=== PATIENT | male | born 1950 | race Caucasian/White ===

== ENCOUNTER 2017-01-19 07:09 | Inpatient (IN) | payer OTHER ==
[2016-12-23 13:52] VITALS: BMI 26.0
--- NOTE | 2016-12-23 14:25 | PAT Medication Instructions ---
Service Date Dec 23, 2016. Current Home Medication List Ascorbic Acid (Vitamin C), 1,000 MG PO QAM Aspirin (Aspirin Ec), 81 MG PO QAM Biotin (Biotin 5000), 5,000 MCG PEG QAM Loratadine (Allergy Relief), 10 MG PO QAM Lysine Hcl (Lysine), 1,000 MCG PO QAM Metoprolol Succ (Toprol Xl) (Toprol-Xl), 25 MG PO QAM Vitamin E (Alph-E), 400 PO QAM Medication Instructions For Your Scheduled Surgery - Hold the following medications 2 weeks prior to surgery: Vitamin E (Alph-E), 400 PO QAM - Hold the following medications the morning of surgery: Loratadine (Allergy Relief), 10 MG PO QAM Lysine Hcl (Lysine), 1,000 MCG PO QAM Biotin (Biotin 5000), 5,000 MCG PEG QAM Ascorbic Acid (Vitamin C), 1,000 MG PO QAM - Take the following medications the morning of surgery with a sip of water: Metoprolol Succ (Toprol Xl) (Toprol-Xl), 25 MG PO QAM Aspirin (Aspirin Ec), 81 MG PO QAM (okay to continue per surgeon) If you have any questions please call us at [phone] or [phone] or [phone]
--- NOTE | 2016-12-23 14:51 | DIAGNOSTIC IMAGING REPORT ---
CHEST 2 VIEWS ROUTINE CLINICAL HISTORY: Preoperative chest COMPARISON STUDY: No previous studies for comparison. FINDINGS: The cardiac and mediastinal contours are normal. There is no evidence of focal pulmonary consolidation. There is no evidence of failure. No pleural effusions are visualized.[ IMPRESSION: No active disease in the chest. Electronically signed by: Allen Chan M.D. 12/23/2016 2:50 PM Dictated Date/Time: 12/23/2016 2:50 PM
[2016-12-23 15:38] LABS: URINE APPEARANCE CLEAR (CLEAR); URINE BILIRUBIN NEG (NEG); URINE COLOR YELLOW; URINE NITRITE NEG (NEG); URINE PH 5.5 (4.5-7.5); URINE SPECIFIC GRAVITY 1.023 (1.000-1.030); UROBILINOGEN NEG (NEG); ZZUR CULT IF INDIC CLEAN CATCH NO
[2016-12-23 15:41] LABS: MANUAL MICROSCOPIC REQUIRED? NO; REVIEW REQ? NO
[2016-12-23 16:36] LABS: HEMATOCRIT 38.1 % (42-52); MEAN CELL VOLUME 100.5 fL (80-100); MEAN CORPUSCULAR HGB CONC 33.9 g/dl (32-36); MEAN PLATELET VOLUME 9.5 fL (7.4-10.4); PLATELET COUNT 116 K/uL (130-400); RED BLOOD COUNT 3.79 M/uL (4.7-6.1)
[2016-12-23 16:37] LABS: BASO % 0.1 %; BASO ABS # 0.03 K/uL (0-0.2); COMPLETE YES; EOS % 0.1 %; IG% 0.1 %; LYMPH % 89.7 %; LYMPH ABS # 26.89 K/uL (1.2-3.4); MONO % 0.9 %; NEUT % 9.1 %
[2016-12-23 20:28] LABS: WHITE BLOOD COUNT 30.93 K/uL (4.8-10.8)
--- NOTE | 2017-01-18 16:17 | HISTORY & PHYSICAL EXAMINATION ---
DATE OF ADMISSION: 01/19/2017 CHIEF COMPLAINT: Chronic right shoulder pain. HISTORY OF PRESENT ILLNESS: This is a 66-year-old male patient of Dr. Varela, complaining of chronic right shoulder pain. He has been diagnosed with end-stage osteoarthritis per clinical and radiographic exams. The patient wishes to proceed with a right total shoulder arthroplasty. PAST MEDICAL HISTORY: Atrial fibrillation and osteoarthritis. SOCIAL HISTORY: Nonsmoker and nondrinker. PAST SURGICAL HISTORY: Left knee surgery. REVIEW OF SYSTEMS: The patient complains of chronic right shoulder pain. Otherwise, denies any shortness of breath, chest pain, nausea, vomiting or any other joint complaints. MEDICATIONS: Vitamin C 1000 mg daily, lysine 1000 mg daily, vitamin E 400 international units daily, biotin 1000 mg daily, 81 mg aspirin daily and he has taken antihistamine over the counter as needed. ALLERGIES: INCLUDE PENICILLIN. PHYSICAL EXAMINATION: GENERAL: Well-developed and well-nourished 66-year-old male in no acute distress. He is alert and oriented x3 and pleasant. HEENT: Normocephalic and atraumatic. Extraocular motions are intact. Pupils are equal and reactive to light. HEART: Irregular heartbeat with a history of atrial fibrillation. LUNGS: Clear. ABDOMEN: Soft and nontender. Bowel sounds are present. EXTREMITIES: Right shoulder reveals active range of motion to 140 degrees and passively to 160. He has crepitation and pain with range of motion. He has 4-5/5 strength. Neurologically and neurovascularly he is intact in his right upper extremity. DIAGNOSES: Right shoulder end-stage osteoarthritis. He has a history of atrial fibrillation and osteoarthritis. PLAN: The patient was advised of his diagnoses. Indications, risks, benefits, and postop course have all been reviewed. The patient wished to proceed with a right total shoulder arthroplasty. Necessary consent forms, preoperative testing and clearances will be obtained.
[~2017-01-19] VITALS: Ht 180.3 cm; Wt 87.1 kg
[2017-01-19] VITALS (9 sets, daily range): BP systolic 78–102; BP diastolic 56–84; PULSE 79–102; TEMP 35.7–36.8; O2SAT 96–99; Ht 180.3 cm; Wt 87.1 kg
[~2017-01-19 07:09] MED LIST: ACETAMINOPHEN 500 MG TAB PO SCH; ASCO10003 PO; ASPI81TA28 PO; BIOTCAP2 PO; BUPIVACAINE 0.25% 30 ML VIAL ONE; CeleBREX 200 MG CAP PO SCH; DEXAMETHASONE 4 MG TAB PO SCH; EpINEphrine INJ 1MG/ML AMP 1 MG/ML AMP ONE; FAMOTIDINE 20 MG TAB PO SCH; GABAPENTIN 300 MG CAP PO SCH; LACTATED RINGER'S 1000ML 1,000 ML IV SCH; LACTATED RINGER'S 1000ML IV SCH; LORA-554 PO; LYSI100010 PO; METO25TA3 PO; METOCLOPRAMIDE HCL 10 MG TAB PO SCH; ROPIVACAINE 0.5% 5 MG/ML 30 ML VIAL ONE; VANCOMYCIN INJ 1,250 MG in SODIUM CHLORIDE 0.9% 250ML 250 ML IV SCH; VITA400C28 PO
[2017-01-19] MEDS ORDERED: MEPERIDINE HCL 25 MG/ML CARP IV PRN (08:15)
[2017-01-19] MEDS ORDERED: LABETALOL HCL IV 5 MG/ML 20ML IV PRN (08:15)
[2017-01-19] MEDS ORDERED: NALOXONE HCL 0.4 MG/1 ML VIAL/CARP IV PRN ×2 (08:15→14:00)
[2017-01-19] MEDS ORDERED: ONDANSETRON INJ 2 MG/ML 2 ML VIAL IV PRN ×2 (08:15→14:00)
[2017-01-19] MEDS ORDERED: PHENYLEPHRINE 100MCG/ML 5ML SYR IV PRN (08:15)
[2017-01-19] MEDS ORDERED: EpHEDrine SULFATE INJ 50 MG/ML AMP IV PRN (08:15)
[2017-01-19] MEDS ORDERED: ATROPINE SULFATE 0.1 MG/ML 5ML SYR IV PRN (08:15)
[2017-01-19] MEDS ORDERED: FENTANYL CITRATE INJ 50 MCG/1 ML 2 ML VIAL IV PRN (08:15)
[2017-01-19] MEDS ORDERED: HYDROmorphone INJ 2 MG/ML SYR/VIAL IV PRN (08:15)
[2017-01-19] MEDS ORDERED: FLUMAZENIL 0.1 MG/1 ML 10 ML VIAL IV PRN (08:15)
[2017-01-19] MEDS ORDERED: MIDAZOLAM HCL 1 MG/ML 2ML VIAL ONE (08:50)
[2017-01-19] MEDS ORDERED: FENTANYL CITRATE INJ 50 MCG/1 ML 2 ML VIAL ONE (08:50)
--- NOTE | 2017-01-19 09:07 | History & Physical Bridge Note ---
H&P Re-Evaluation Bridge Note: I have examined the patient, reviewed the History & Physical and in the interval since the performance of the History & Physical I have noted the following changes of clinical significance: No changes noted
[2017-01-19] MEDS ORDERED: EpINEphrine HCL INJ 1 MG/ML 5ML SYRINGE ONE (09:24)
[2017-01-19] MEDS ORDERED: BACITRACIN 50000 UNIT VIAL ONE (09:24)
[2017-01-19] MEDS ORDERED: PROPOFOL IV EMULSION 10 MG/ML 20 ML VIAL IV ONE (10:11)
[2017-01-19] MEDS ORDERED: LIDOCAINE HCL 2% 2 ML VIAL (20MG/ML) ONE (10:11)
[2017-01-19] MEDS ORDERED: ROCURONIUM BROMIDE 10 MG/ML 5 ML VIAL IV ONE ×2 (10:11→12:01)
[2017-01-19] MEDS ORDERED: DEXAMETHASONE SOD INJ 4 MG/ML VIAL ONE (10:33)
[2017-01-19] MEDS ORDERED: ONDANSETRON INJ 2 MG/ML 2 ML VIAL ONE (10:33)
[2017-01-19] MEDS ORDERED: EpHEDrine SULFATE 50MG/5ML SYR ONE (10:33)
[2017-01-19] MEDS ORDERED: PHENYLEPHRINE 100MCG/ML 5ML SYR ONE (10:33)
[2017-01-19] MEDS ORDERED: PHENYLEPHRINE HCL INJ 10 MG/ML VIAL ONE (12:03)
[2017-01-19] MEDS ORDERED: GLYCOPYRROLATE INJ 0.2 MG/ML VIAL ONE (13:24)
[2017-01-19] MEDS ORDERED: NEOSTIGMINE METHYLSULFATE 1 MG/ML 10ML VIAL ONE (13:24)
[2017-01-19] MEDS ORDERED: ESMOLOL HCL 10 MG/ML 10 ML VIAL ONE (13:48)
[2017-01-19] MEDS ORDERED: VANCOMYCIN INJ 1,000 MG in SODIUM CHLORIDE 0.9% 250ML 250 ML IV SCH (14:00)
[2017-01-19] MEDS ORDERED: METOCLOPRAMIDE HCL INJ 5 MG/ML 2 ML VIAL IV PRN (14:00)
[2017-01-19] MEDS ORDERED: SOD PHOSPHATE/SOD BIPHOSPHATE ENEMA 132 ML BTL PR PRN (14:00)
[2017-01-19] MEDS ORDERED: BISACODYL 10 MG SUPP PR PRN (14:00)
[2017-01-19] MEDS ORDERED: MoRPHine SULFATE 2 MG/ML CARP IV PRN (14:00)
[2017-01-19] MEDS ORDERED: ZOLPIDEM TARTRATE 5 MG TAB PO PRN (14:00)
--- NOTE | 2017-01-19 14:14 | [facility] Post Operative Brief Note ---
Immediate Operative Summary Operative Date Jan 19, 2017. Pre-Operative Diagnosis Right shoulder end-stage osteoarthritis Post-Operative Diagnosis Right shoulder end-stage osteoarthritis,marked biceps tendinopathy and bone spurs bicipital groove Procedure(s) Performed Right Total Shoulder Arthroplasty, Biceps Tenodesis Surgeon Dr. Grey Varela Motorboat Mechanic Helper Surgeon(s) Rambo Jones PA-C Estimated Blood Loss 50ml Findings severe osteoarthritis with posterior glenoid erosion and bone loss Specimens A: Right humeral head Drains 2 hemovac Anesthesia general and regional Complication(s) hairline fracture humeral neck Disposition Recovery Room / PACU
--- NOTE | 2017-01-19 14:18 | DIAGNOSTIC IMAGING REPORT ---
R SHOULDER MIN 2 VIEWS ROUTINE HISTORY: 67 years-old Male Post shoulder surgery status post right shoulder arthroplasty. Degenerative joint disease. COMPARISON: Chest radiograph 12/23/2016 TECHNIQUE: 2 views of the right shoulder FINDINGS: Postoperative changes of recent right shoulder hemiarthroplasty demonstrating satisfactory alignment. No periprosthetic fracture or retained foreign body identified. Surgical drain is in place as well as adjacent skin juanita with expected postsurgical deep tissue air and soft tissue swelling about the shoulder. IMPRESSION: Status post right shoulder hemiarthroplasty without complication identified. Please see procedural report for further details. The above report was generated using voice recognition software. It may contain grammatical, syntax or spelling errors. Electronically signed by: Jey Yi M.D. 01/19/2017 2:17 PM Dictated Date/Time: 01/19/2017 2:15 PM
--- NOTE | 2017-01-19 15:03 | Anesthesiology Progress Note ---
Anesthesia Post Op Note Date & Time Jan 19, 2017 at 15:02 Vital Signs Pain Intensity: 0 Vital Signs Past 12 Hours Date Time Temp Pulse Resp B/P (MAP) Pulse Ox O2 Delivery O2 Flow Rate FiO2 01/19/17 14:55 36.6 88 16 87/57 99 Nasal Cannula 2 01/19/17 14:45 78 18 82/57 98 Nasal Cannula 2 01/19/17 14:35 93 17 83/64 100 Nasal Cannula 2 01/19/17 14:25 88 18 87/56 98 Nasal Cannula 2 01/19/17 14:17 90/62 01/19/17 14:15 98 18 79/53 99 Oxymask 10 01/19/17 14:05 84 18 85/63 100 Oxymask 10 01/19/17 13:57 36.3 101 14 84/73 100 Oxymask 10 01/19/17 08:25 36.4 79 18 99/84 98 Room Air Notes Mental Status: alert / awake / arousable, participated in evaluation Pt Amnestic to Procedure: Yes Nausea / Vomiting: adequately controlled Pain: adequately controlled Airway Patency, RR, SpO2: stable & adequate BP & HR: stable & adequate Hydration State: stable & adequate Anesthetic Complications: no major complications apparent
--- NOTE | 2017-01-19 15:22 | OPERATIVE REPORT ---
DATE OF OPERATION: 01/19/2017 INDICATION FOR PROCEDURE: The patient is a 67-year-old male who has a history of chronic progressive osteoarthritis in his right shoulder. He has been treating this conservatively for many years. He decided to proceed with shoulder replacement surgery at this time. He was diagnosed recently on his workup with chronic lymphocytic leukemia and atrial fibrillation but have not been affecting his health in any way of any significance. He is active and healthy otherwise living an active athletic lifestyle and has been medically cleared for surgery at this time. He has radiographs demonstrate that he is [id number] in the glenohumeral joint. On the axillary view, he has some glenoid erosion and some slight posterior subluxation of the humeral head. He has a maintained subacromial space consistent with an intact rotator cuff. PREOPERATIVE DIAGNOSIS: End-stage glenohumeral osteoarthritis, right shoulder. POSTOPERATIVE DIAGNOSIS: Same including marked bicipital tendonopathy, tenosynovitis with large bicipital groove bone spurs, glenoid retroversion with posterior glenoid erosion and bone loss. SURGICAL PROCEDURE: Right total shoulder arthroplasty and biceps tenodesis including tenosynovectomy biceps with excision bicipital groove and bone spurs. SURGEON: Dr. Varela. HAIR AND MAKEUP DESIGNER: Rambo Jones PA-C. ANESTHESIA: Regional block and general. DRAINS: Two Hemovac. COMPLICATIONS: Hairline neck fracture humerus. ESTIMATED BLOOD LOSS: 50 mL. OPERATIVE PROCEDURE: The patient was taken to the operating room, anesthetized under a general anesthetic after regional anesthetic was placed by anesthesia in the holding area. He was placed in the 30 degree beach chair position with a towel roll on the medial border of his right scapula. He was translated to right side of the bed, so his shoulder could be manipulated off the bed as necessary. His head was placed on a foam headrest. She had protective eyewear placed. He had TEDs and SCDs, and Negrete catheter placed. His right shoulder exam demonstrated he had 125-130 degrees of forward elevation, only 30 degrees of external rotation and 60 degrees of abduction. He had marked [id number] crepitation. After shoulder was sterilely prepped and draped using ChloraPrep. An anterior deltopectoral approach was performed. Skin was incised sharply. Subcutaneous flaps were elevated. The deltoid was retracted laterally, pectoralis medially. The cephalic vein was dissected out and retracted laterally with the deltoid. One of the large crossing veins was tied off with silk ties and divided. The upper centimeter of the pectoralis was released for inferior exposure. First notable thing was he had a very massive fluid collection around the biceps tendon. This was dissected out around the biceps up into the bicipital groove. There was large bone spurs around the bicipital groove that were actually loose and mobile spurs circumferentially surrounding the biceps. We did a thorough tenosynovectomy around the biceps. I tenodesed the biceps to the pectoralis with [id number] #2 FiberWire sutures, resected the proximal biceps and resected the bone spurs. There was a thickened bursa over the rotator cuff. This was all resected. The rotator cuff was completely intact. He had a lot of bulging fluid coming out of the rotator interval area consistent with synovitis of the joint. We placed a self-retaining retractor in place. The circumflex vessels were identified, tied off with silk ties and divided laterally in the bicipital groove area. The rotator interval was then opened up and the fluid was evacuated and the incision was carried laterally along the upper subscap tendon toward the lateral subscap tendon. We did a transtendinous incision through the subscapularis leaving about a cm of subscapularis tendon for repair on the lesser tuberosity. We did split the fibers of the subscapularis at the level of the circumflex vessels down to the capsule, then reflected the fibers of the inferior subscapularis off the inferior capsule, identified the axillary nerve and then placed the blunt Bobby retractor between the axillary nerve and the capsule. Then I took the capsule and subscapularis tendon down off the neck of the humerus. Subperiosteal dissection toward the neck of the humerus as we gradually externally rotated the humerus. Placed another retractor around the large inferior osteophytes on the humeral head. When we entered the joint there was a lot of synovitis throughout the joint. He had a white material that was consistent with probably old steroid injection. This was all debrided from the undersurface and upper surface of the subscapularis. The humeral articular surface was exposed demonstrating rimming osteophytes from anterior to posterior along the inferior aspect of the humerus extending up to the upper greater tuberosity area underlying the supraspinatus. These osteophytes were all removed. I used a rongeur and a artist chisel. Then, we used a Ho elevator to make sure the capsule was released around the neck of the humerus. The patient had a very large humeral head. He had completely exposed bone on the humeral head with some eburnated bone. Then I retracted the humeral head posterior to the glenoid with a Fukuda retractor. Then under direct visualization, released the capsule down to the anterior glenoid off the anterior glenoid and rotator interval was released down to the glenoid achieving a 360 degree release of the subscapularis. We did resect some of the thickened inflamed synovial tissue on the undersurface of the subscapularis and a small portion of the capsule. The glenoid was visualized and there was a biconcave type glenoid with posterior glenoid erosion. This started from the anterior 20% only of the glenoid was normal version and 80% was involved in some posterior retroversion. The degenerative labrum was resected circumferentially, the biceps tendon was resected from the superior glenoid. Some of the inflamed synovial tissue was resected from within the joint. Then we did an anterior inferior, posterior inferior capsular release using electrocautery on bone and the Ho elevator with the axillary nerve safely protected with the retractor inferiorly. Then the humeral head was delivered with extension and external rotation. I then placed retractors about the humeral head and used the oscillating saw to resect the humeral head surface. We measured this and it was 54 mm in diameter. The humeral stem was then fashioned for the implant to put a cup protector on the humerus. I used the centering awl followed by sequential broaches which went all the way up to 7-8 broach for the distal stem. He had good hard metaphyseal bone. I used the small box osteotome bottom wheeler to open up the canal for the first trial broaches. We broached up starting at a 1 up to a 7. When I was inserting the 7 broach and had not fully seated it I noticed there was a small crack starting in the lateral neck of the humerus. This appeared to extend about a centimeter. It was very stable however I felt we had to downsize the stem to a 6 and with the [address] the crack could not be seen at all. The cup protector was placed on the head and then we went ahead and retracted the humerus posterior to the glenoid. The retraction and exposure was difficult due to the significant retroversion bone loss. I first curetted down all the articular surface of the anterior glenoid to get the true bony version and removed some of the anterior osteophytes which were fairly large on the glenoid. Then we adjusted the drill for the glenoid component to be eccentrically reamed down some of the anterior glenoid to readjust the version of the glenoid and be able to put a glenoid implant in placed. The glenoid was sized for a 52 mm glenoid component. I then used the reamer for the 52 and then we had to ream down into the glenoid to change the version appropriately. Then we widened the central hole for the peg of the stem and then made our peripheral drill holes. All this was more difficult including retraction due to the significant retroversion. We did a trial reduction which was satisfactory. Then we did a copious irrigation with antibiotic solution and bacitracin. Then we placed epinephrine tampons into each individual hole and obtained hemostasis then vacuum mixed the Palacos G cement. The Tournier Affiniti CortiLoc glenoid was then inserted. The central peg is press-fit, base of the peripheral pegs are cemented, back of the implant cemented. We packed this into position with tight fit and held it continuously until the cement cured. We did remove all excess cement. Glenoid was noted to be stable after the cement cured and then we went ahead and did a trial reduction and I needed a 54 x 23 mm head to give appropriate stability and coverage over the cut surface. The shoulder was stable and we rotated the arm. The microscopic hairline crack did not gap and there was complete stability and then the trial was removed and the final component was assembled. We used the Ascend Flex standard humeral stem 6A and assemble to the 54 x 23 high offset humeral head. I made 3 drill holes through the hard bone of the bicipital groove area and passed 3 sutures around the lesser tuberosity using #5 FiberWire sutures x3 and then after copious irrigation of the canal, we went ahead and inserted the humeral implant. I did place some cancellous bone graft around the humeral implant to make sure we had stability of the stem due to the fact that we did broach up to a 7. There was a good press fit and the hairline crack was not widened in any way and did appear to propagate. We took the arm through range of motion after the humerus was reduced to the glenoid. The patient had 140 degrees of forward elevation and with rotation the humeral implant was completely stable with passive motion. The joint was copiously irrigated and then the subscapularis was repaired with #5 FiberWire sutures using Aubrey-Barry suture technique, lateral row soft tissue fixation with [id number] #2 FiberWire sutures. Rotator interval was closed in maximal external rotation with interrupted #2 Fiberwire sutures. The pectoralis repair on the upper centimeter was repaired with [id number] #2 FiberWire sutures placing the sutures back through the biceps tendon to reinforce biceps tenodesis. Final range of motion was 140 degrees of forward elevation and 45 degrees of external rotation, 90 degrees abduction without tension on the repair. The wound was irrigated. Two Hemovac drains were placed. The deltopectoral interval was repaired with [id number] #1 Vicryl sutures. Subcutaneous tissue closed with interrupted 2-0 Vicryl sutures, skin closed with juanita. Sterile dressings applied and the patient tolerated the procedure well. MINOR Ruvalcaba was my promotions assistant sales marketing. He functioned as promotions assistant sales marketing for the entire procedure. He participated in patient positioning, prepping, draping, arm positioning, soft tissue retraction, and did perform the outer subcutaneous and skin closure and will participate in postoperative care of the patient. I attest to the content of the Intraoperative Record and any orders documented therein. Any exception s are noted below.
[2017-01-19] MEDS ORDERED: MoRPHine SULFATE 4 MG/ML 1 ML CARP\\VIAL IV PRN (15:30)
[2017-01-19] MEDS ORDERED: NURSING DECISION MEDICATION ORDER SCH (16:00)
[2017-01-19] MEDS ORDERED: COUGH DROP (SUGAR FREE) LOZ 24 LOZ/1 BOX PO PRN (16:15)
[2017-01-19] MEDS: D5W AND 1/2NSS + 20MEQ KCL 1,000 ML IV SCH (16:32)
[2017-01-19] MEDS ORDERED: INFLUENZA VACCINE HIGH DOSE 65+ 0.5 ML SYR IM. ONE (18:00)
[2017-01-19] MEDS ORDERED: INFLUENZA ADMINISTRATION CHARGE ONE (18:00)
--- NOTE | 2017-01-19 18:46 | Medical Consult ---
Consultation Date of Consultation: Jan 19, 2017. Attending Physician: Grey Varela M.D. Reason for Consultation: Medical Management History of Present Illness Mr. Cohen is a 67 y/o male with PMHx of Persistent Atrial Fibrillation (new diagnosis) and Leukocytosis (undetermined origin) who is S/P R Shoulder Arthroplasty and Biceps Tenodesis on 01/19. Patient is extremely active and runs or bikes most days of the week. During pre-operative evaluation he was noted to be in rate controlled Atrial Fibrillation. Patient has had no past cardiac issues or H/O known arrhythmias. He is asymptomatic with the rhythm and has ultimately remained in A Fib. He has been on Toprol XL x 2 weeks. He has opted to use ASA 81 mg daily instead of anticoagulation. He is planning on undergoing cardioversion after recovery from surgery. He follows with a basket weaver in [place] as he is from there. He denies anginal symptoms, ORDONEZ, or lightheadedness/dizziness. Incidentally, he was noted to have leukocytosis ranging from mid 20s-30s. He saw a mechanic prior to this surgery. They have done a blood smear revealing smudge cells and stated concern for CLL. However, still awaiting cytology reports and patient is to follow up with hematology soon. He denies constitutional symptoms such as fever/night sweats or unintentional weight loss. Currently patient is pain free and tolerating a diet. He verbalizes no complaints. Past Medical/Surgical History 1. Persistent Atrial Fibrillation - New Diagnosis 2. Leukocytosis, Undetermined Family History Patient reports no known family medical history. Social History Smoking Status: Never Smoker Smokeless Tobacco Use: No Alcohol Use: socially Drug Use: none Allergies Coded Allergies: Penicillins (Verified Allergy, Unknown, UNKNOWN, 01/19/17) Current Inpatient Medications Current Inpatient Medications Medications (Trade) Dose Ordered Sig/Senait Route Start Time Stop Time Status Last Admin Dose Admin Lactated Ringer's 1,000 ml @ 15 mls/hr Q24H IV 01/19/17 06:00 01/20/17 05:59 Lactated Ringer's 1,000 ml @ 60 mls/hr [id number] IV 01/19/17 06:00 01/19/17 22:39 01/19/17 08:10 60 MLS/HR Acetaminophen (Tylenol Tab) 1,000 mg PREOP PO 01/19/17 06:00 01/19/17 18:00 01/19/17 08:14 1,000 MG Celecoxib (CeleBREX CAP) 200 mg PREOP PO 01/19/17 06:00 01/19/17 18:00 01/19/17 08:14 200 MG Dexamethasone (Decadron Tab) 8 mg PREOP PO 01/19/17 06:00 01/19/17 18:00 01/19/17 08:13 8 MG Famotidine (Pepcid Tab) 20 mg PREOP PO 01/19/17 06:00 01/19/17 18:00 01/19/17 08:13 20 MG Gabapentin (Neurontin Cap) 300 mg PREOP PO 01/19/17 06:00 01/19/17 18:00 01/19/17 08:12 300 MG Metoclopramide HCl (Reglan Tab) 10 mg PREOP PO 01/19/17 06:00 01/19/17 18:00 01/19/17 08:13 10 MG Vancomycin HCl 1250 mg/Sodium Chloride 275 ml @ 125 mls/hr PREOP IV 01/19/17 06:00 01/20/17 05:59 01/19/17 08:10 125 MLS/HR Aspirin (Ecotrin Tab) 81 mg QAM PO 01/20/17 09:00 02/19/17 08:59 Metoprolol Succinate (Toprol Xl Tab) 25 mg QAM PO 01/20/17 09:00 02/19/17 08:59 [id number] Acetate (Vitamin E Cap) 400 interunit QAM PO 01/20/17 09:00 02/19/17 08:59 Ascorbic Acid (Vitamin C Tab) 1,000 mg QAM PO 01/20/17 09:00 02/19/17 08:59 Loratadine (Claritin Tab) 10 mg QAM PO 01/20/17 09:00 02/19/17 08:59 Diphenhydramine HCl (Benadryl Cap) 25 mg Q8 PRN PO 01/19/17 14:00 02/18/17 13:59 Zolpidem Tartrate (Ambien Tab) 5 mg HSZ PRN PO 01/19/17 14:00 02/18/17 13:59 Metoclopramide HCl (Reglan Inj) 10 mg Q6H PRN IV 01/19/17 14:00 02/18/17 13:59 Ondansetron HCl (Zofran Inj) 4 mg Q6H PRN IV 01/19/17 14:00 02/18/17 13:59 Pantoprazole Sodium (Protonix Tab) 40 mg QAM PO 01/20/17 09:00 02/19/17 08:59 Potassium Chloride/Dextrose/ Sod Cl 1,000 ml @ 100 mls/hr Q10H IV 01/19/17 16:00 01/20/17 15:59 01/19/17 16:32 100 MLS/HR Oxycodone HCl (Roxicodone Immediate Rel Tab) `1-2 TABS FOR PAIN `1 TAB... Q4H PRN PO 01/19/17 14:00 02/02/17 13:59 Oxycodone HCl (Oxycontin Tab) 10 mg Q12 PO 01/19/17 21:00 02/02/17 20:59 Acetaminophen (Tylenol Tab) 1,000 mg Q8 PO 01/19/17 22:00 02/18/17 21:59 Morphine Sulfate (MoRPHine SULFATE INJ) 2 mg Q2H PRN IV 01/19/17 14:00 02/02/17 13:59 Naloxone HCl (Narcan Inj) 0.1 mg Q2M PRN IV 01/19/17 14:00 02/18/17 13:59 Magnesium Hydroxide (Milk Of Magnesia Susp) 30 ml Q6H PRN PO 01/19/17 14:00 02/18/17 13:59 Bisacodyl (Dulcolax Supp) 10 mg DAILY PRN AK 01/19/17 14:00 02/18/17 13:59 Sodium Biphosphate/ Sodium Phosphate (Fleet Enema) 132 ml DAILY PRN AK 01/19/17 14:00 02/18/17 13:59 Docusate Sodium (coLACE CAP) 100 mg BID PO 01/19/17 21:00 02/18/17 20:59 Multivitamins (Multivitamin Tab) 1 tab DAILY PO 01/20/17 09:00 02/19/17 08:59 Morphine Sulfate (MoRPHine SULFATE INJ) 4 mg Q2H PRN IV 01/19/17 15:30 02/02/17 15:29 Vancomycin HCl 1250 mg/Sodium Chloride 275 ml @ 125 mls/hr TODAY@1999 ONCE IV 01/19/17 20:00 01/19/17 22:11 Menthol (Nice Eli) 1 eli Q1H PRN PO 01/19/17 16:15 02/18/17 16:14 01/19/17 16:34 1 ELI Influenza Virus Vaccine (Fluzone High-Dose Pf 0.5 ml) 0.5 ml ONCE ONCE IM. 01/19/17 18:00 01/19/17 18:01 Review of Systems Constitutional: No fever, No chills, No weight loss, No fatigue ENT: No nasal symptoms, No sore throat Respiratory: No cough, No shortness of breath Cardiovascular: No chest pain, No orthopnea, No palpitations Abdomen: No pain, No nausea, No vomiting, No diarrhea, No constipation, No GI bleeding Musculoskeletal: No joint pain, No swelling, No calf pain Genitourinary - Male: No dysuria Hematologic / Lymphatic: No abnormal bleeding/bruising, No clotting problems Integumentary: No rash Physical Exam Date Time Temp Pulse Resp B/P (MAP) Pulse Ox O2 Delivery O2 Flow Rate FiO2 01/19/17 16:30 88 16 91/65 (74) 99 Nasal Cannula 2.0 01/19/17 15:59 35.7 102 16 94/61 (72) 98 Nasal Cannula 2.0 01/19/17 15:50 98 Nasal Cannula 2.0 01/19/17 15:30 36.8 96 17 95/67 (76) 98 Nasal Cannula 2.0 01/19/17 15:20 88 14 92/54 98 Nasal Cannula 2 01/19/17 15:10 96 14 86/59 100 Nasal Cannula 2 01/19/17 14:55 36.6 88 16 87/57 99 Nasal Cannula 2 01/19/17 14:45 78 18 82/57 98 Nasal Cannula 2 01/19/17 14:35 93 17 83/64 100 Nasal Cannula 2 01/19/17 14:25 88 18 87/56 98 Nasal Cannula 2 01/19/17 14:17 90/62 01/19/17 14:15 98 18 79/53 99 Oxymask 10 01/19/17 14:05 84 18 85/63 100 Oxymask 10 10/26/17 13:57 36.3 101 14 84/73 100 Oxymask 10 01/19/17 08:25 36.4 79 18 99/84 98 Room Air General Appearance: WD/WN, no apparent distress Head: normocephalic, atraumatic Eyes: sclerae normal ENT: hearing grossly normal Neck: supple, no JVD, trachea midline Respiratory/Chest: lungs clear, normal breath sounds, no respiratory distress, no accessory muscle use Cardiovascular: no gallop, no murmur, + irregularly irregular Abdomen/GI: normal bowel sounds, non tender, soft Back: no CVA tenderness Extremities/Musculoskelatal: no calf tenderness, no pedal edema, + pertinent finding (R shoulder with arm in sling; bandage C/D/I; drain with bloody drainage ; cap refill immediate) Neurologic/Psych: alert, oriented x 3 Skin: normal color, warm/dry Laboratory Results Last 24 Hours Test 01/19/17 16:32 Assessment & Plan Mr. Cohen is a 67 y/o male with PMHx of Persistent Atrial Fibrillation (new diagnosis) and Leukocytosis (undetermined origin) who is S/P R Shoulder Arthroplasty and Biceps Tenodesis on 01/19. S/P R Shoulder Arthroplasty and Biceps Tenodesis on 01/19: - Pain management, IVF, PT/OT, DVT prophylaxis per primary Persistent Atrial Fibrillation: Rate Controlled - Opted to not utilize anticoagulation - ASA 81 mg daily - Toprol XL 25 mg daily Leukocytosis: - Follows with Heme/Onc back home - awaiting cytology - Per note on chart - question of possible CLL Thank you for the consultation. Will continue to follow Reviewed: Pt Seen/Exam by Me History Physician Front End Application Developer Supervision Note: I interviewed and examined the patient. Discussed with MINOR Galvan and agree with findings and plan as documented in the note. Any exceptions or clarifications are listed here: Patient doing very well postoperatively. He does feel like there is a little bit of irritation in his throat like he needs to cough but this is likely from airway management during anesthesia. No chest pain or shortness of breath. 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 Doing very well. -With low blood pressures, he seems to be asymptomatic, but would consider decreasing his Toprol-XL dose to 12.5 mg once daily -Follow up with cardiology as planned as an outpatient for possible DC cardioversion in the future -Follow up with hematology in the future for probable CLL-no acute issues currently -On aspirin once daily for his atrial fibrillation, and will leave increase in dose for possible DVT prophylaxis up to the primary orthopedics team Documented By: Tyra Gunn
[2017-01-19] MEDS ORDERED: VANCOMYCIN INJ 1,250 MG in SODIUM CHLORIDE 0.9% 250ML 250 ML IV ONE (20:00)
[2017-01-19] MEDS: DOCUSATE SODIUM 100 MG CAP PO SCH (21:14)
[2017-01-19] MEDS: ACETAMINOPHEN 500 MG TAB PO SCH (21:15)
[2017-01-19] MEDS: OXYCODONE HCL 10 MG TABCR (OXYCONTIN) PO SCH (21:15)
[2017-01-20] MEDS: D5W AND 1/2NSS + 20MEQ KCL 1,000 ML IV SCH ×2 (02:09→12:28)
[2017-01-20 03:22] VITALS: BP 99/56; PULSE 95; TEMP 36.7; O2SAT 97
[2017-01-20] MEDS: ACETAMINOPHEN 500 MG TAB PO SCH ×3 (06:07→21:46)
[2017-01-20 06:22] LABS: HEMATOCRIT 30.4 % (42-52); MEAN CELL VOLUME 100.7 fL (80-100); MEAN CORPUSCULAR HEMOGLOBIN 33.8 pg (25-34); MEAN CORPUSCULAR HGB CONC 33.6 g/dl (32-36); MEAN PLATELET VOLUME 9.1 fL (7.4-10.4); PLATELET COUNT 107 K/uL (130-400); RED BLOOD COUNT 3.02 M/uL (4.7-6.1); WHITE BLOOD COUNT 36.64 K/uL (4.8-10.8)
[2017-01-20 06:27] LABS: BUN/CREATININE RATIO 16.1 (10-20); CALCIUM 7.3 mg/dl (8.5-10.1); CREATININE 1.09 mg/dl (0.60-1.40); POTASSIUM 4.8 mmol/L (3.5-5.1)
[2017-01-20 07:11] VITALS: BP 93/60; PULSE 75; TEMP 36.5; O2SAT 96
--- NOTE | 2017-01-20 07:54 | Anesthesiology Progress Note ---
Anesthesia Post Op Note Date & Time Jan 20, 2017 at 07:53 Vital Signs Pain Intensity: 0.0 Vital Signs Past 12 Hours Date Time Temp Pulse Resp B/P (MAP) Pulse Ox O2 Delivery O2 Flow Rate FiO2 01/20/17 07:11 36.5 75 17 93/60 (71) 96 Room Air 01/20/17 03:22 36.7 95 16 99/56 (70) 97 Room Air 01/19/17 23:15 Room Air 01/19/17 23:03 36.6 92 16 101/66 (78) 96 Room Air Notes Mental Status: alert / awake / arousable, participated in evaluation Pt Amnestic to Procedure: Yes Nausea / Vomiting: adequately controlled Pain: adequately controlled Airway Patency, RR, SpO2: stable & adequate BP & HR: stable & adequate Hydration State: stable & adequate Neuraxial Anesthesia: sensory block is resolving Anesthetic Complications: no major complications apparent
--- NOTE | 2017-01-20 08:27 | Orthopedic Progress Note ---
Orthopedic Progress Note Date of Service Jan 20, 2017. Subjective Post OP Day: 1 Reports: feeling well, pain controlled w PO medications, Denies: complaints, chest pain, SOB, nausea / vomiting, light headedness, calf pain Additional Notes: WBC's elevated, blood cxs ordered per medicine Objective N/V intact, capillary refill less than 2 sec., dressing C/D/I, A&O x3 Sling in tact, fingers mobile. Noticeable cough. Date Time Temp Pulse Resp B/P (MAP) Pulse Ox O2 Delivery O2 Flow Rate FiO2 01/20/17 08:19 Room Air 01/20/17 07:11 36.5 75 17 93/60 (71) 96 Room Air 01/20/17 03:22 36.7 95 16 99/56 (70) 97 Room Air 01/19/17 23:15 Room Air 01/19/17 23:03 36.6 92 16 101/66 (78) 96 Room Air 01/19/17 18:53 36.4 100 22 102/60 (74) 99 Room Air 01/19/17 18:52 99 Room Air 01/19/17 17:37 85/58 (67) 01/19/17 17:30 36.4 92 20 78/56 (63) 98 Nasal Cannula 2.0 01/19/17 16:30 88 16 91/65 (74) 99 Nasal Cannula 2.0 01/19/17 15:59 35.7 102 16 94/61 (72) 98 Nasal Cannula 2.0 01/19/17 15:50 98 Nasal Cannula 2.0 01/19/17 15:30 36.8 96 17 95/67 (76) 98 Nasal Cannula 2.0 01/19/17 15:20 88 14 92/54 98 Nasal Cannula 2 01/19/17 15:10 96 14 86/59 100 Nasal Cannula 2 01/19/17 14:55 36.6 88 16 87/57 99 Nasal Cannula 2 01/19/17 14:45 78 18 82/57 98 Nasal Cannula 2 01/19/17 14:35 93 17 83/64 100 Nasal Cannula 2 01/19/17 14:25 88 18 87/56 98 Nasal Cannula 2 01/19/17 14:17 90/62 01/19/17 14:15 98 18 79/53 99 Oxymask 10 01/19/17 14:05 84 18 85/63 100 Oxymask 10 01/19/17 13:57 36.3 101 14 84/73 100 Oxymask 10 01/19/17 08:25 36.4 79 18 99/84 98 Room Air Laboratory Results 24 Hours: Test 01/20/17 05:41 Hematocrit 30.4 % Hemoglobin 10.2 g/dL Assessment & Plan Assessment: POD #1, Right TSA, Biceps tenodesis. Plan: Limited PT/ OT as ordered DVT proph- ASA D/C planning- Home As per medicine Check CXR Inhouse Planning Pain Management: Oxycontin, Morphine, PO Tylenol, Oxy IR DVT Prophylaxis: TEDs, SCDs, ASA Discharge Planning Discharge Planning: home
--- NOTE | 2017-01-20 08:31 | Discharge Instructions ---
Discharge Instructions Date of Service Jan 20, 2017. Admission Reason for Admission: Right Shoulder Degenerative Joint Disease Discharge Discharge Diagnosis / Problem: Right TSA, biceps tenodesis, small nondisplaced prox humeris fx. Discharge Goals Goal(s): Improve function Activity Recommendations Activity Limitations: as noted below . Instructions / Follow-Up Instructions / Follow-Up ACTIVITY RECOMMENDATIONS: SELF CARE INSTRUCTIONS AFTER TOTAL SHOULDER ARTHROPLASTY A. You may do daily exercises as taught in physical therapy while in hospital. No lifting with the operative arm. B. You are to wear your sling/immobilizer at all times EXCEPT when performing your daily exercises and for hygiene purposes. C. You may perform dry, daily dressing changes. Please keep your incision covered. You may shower 48 hours after surgery. Do not apply soap or any ointment/ lotions directly over incision. Do not soak incision in bath tub/swimming pool. D. You may use ice as needed to operative shoulder. SPECIAL CARE INSTRUCTIONS: VERY IMPORTANT TO READ AND REVIEW A. There are a few signs you need to watch for after you are home. Call [facility] at [phone] if you experience any of the followin. Increased severe shoulder pain. Some pain is expected especially when you exercise. 2. Increased swelling in you shoulder or arm; pain or swelling in either upper extremity. 3. Any fluid drainage from the incision. 4. Shortness of breath or chest pain. B. Please call [facility] at [phone] if you have any questions or concerns about your operation or recovery. C. Call your physician if: 1. Temperature is greater than 101 degrees (F). 2. Pain is not relieved by prescribed pain medications. 3. Increase drainage or redness from incision. 4. Unanswered questions or concerns. FOLLOW UP VISIT: Please call [facility] at [phone] to schedule a follow up appointment with Dr. Varela or his PA in 12-14 days from your surgery date. NO FORMAL PT, HOME EXERCISES PER PRINTED SHEET ONLY UNTIL FOLLOW UP. Current Hospital Diet Patient's current hospital diet: Regular Diet Discharge Diet Recommended Diet: Regular Diet Procedures Procedures Performed: Right Total Shoulder Arthroplasty, Biceps Tenodesis Pending Studies Studies pending at discharge: no Laboratory Results Hemoglobin A1c Test 12/23/16 14:34 Range/Units Estimated Average Glucose 114 mg/dl Hemoglobin A1c 5.6 4.5-5.6 % Medical Emergencies . Who to Call and When: Medical Emergencies: If at any time you feel your situation is an emergency, please call 911 immediately. . Non-Emergent Contact Non-Emergency issues call your: Primary Care Provider . "Provider Documentation" section prepared by Rambo Jones. . VTE Core Measure Inpt VTE Proph given/why not?: Other Anticoagulation (ASA), T.E.D. Stockings, SCD's [place] Drug Monitoring Program Search Results: patient reviewed within database, no issues identified
[2017-01-20] MEDS: LORATADINE 10 MG TAB PO SCH (08:40)
[2017-01-20] MEDS: DOCUSATE SODIUM 100 MG CAP PO SCH ×2 (08:40→21:45)
[2017-01-20] MEDS: ASPIRIN 81 MG ECTAB PO SCH (08:41)
[2017-01-20] MEDS: PANTOprazole SOD 40 MG TAB PO SCH (08:41)
[2017-01-20] MEDS: METOPROLOL SUCC 25MG EXT REL TAB PO SCH (08:41)
[2017-01-20] MEDS: MULTIVITAMIN TAB PO SCH (08:41)
[2017-01-20] MEDS: OXYCODONE HCL 10 MG TABCR (OXYCONTIN) PO SCH ×2 (08:41→21:45)
[2017-01-20] MEDS: TOCOPHERYL, DL-ALPHA 400 INTER.UNIT CAP PO SCH (08:42)
[2017-01-20] MEDS: ASCORBIC ACID 500 MG TAB PO SCH (08:42)
[2017-01-20] MEDS ORDERED: LYSINE HCL PO SCH (09:00)
[2017-01-20] MEDS ORDERED: NON-FORMULARY MEDICATION (Biotin (Biotin 5000) 5,000 MCG) PO SCH (09:00)
--- NOTE | 2017-01-20 09:32 | DIAGNOSTIC IMAGING REPORT ---
TWO VIEW CHEST CLINICAL HISTORY: Cough. FINDINGS: PA and lateral chest radiographs are compared to study dated 12/23/2016. The cardiomediastinal silhouette is unremarkable. Atherosclerotic calcification is noted in the thoracic aorta. The lungs are hyperinflated and hyperlucent with flattening the diaphragm suggesting obstructive physiology. Nonspecific interstitial thickening is noted. No airspace consolidation or pleural effusion is identified. There is no pneumothorax. The bony thorax appears intact. Mild degenerative change is present throughout the thoracic spine. A right shoulder arthroplasty is partially visualized. Subcutaneous gas, skin clips, and a surgical drain project over the right shoulder. IMPRESSION: Findings suggest emphysema. There is no acute cardiopulmonary abnormality. Electronically signed by: Alphonso Whiteside M.D. 01/20/2017 9:31 AM Dictated Date/Time: 01/20/2017 9:29 AM
[2017-01-20 11:52] VITALS: BP 96/66; PULSE 78; TEMP 36.3; O2SAT 98
--- NOTE | 2017-01-20 12:40 | Hospitalist Progress Note ---
Hospitalist Progress Note Date of Service Jan 20, 2017. (Margaux Dominique ., PA-C) Subjective Pt evaluation today including: conversation w/ patient, physical exam, lab review, review of studies, review of inpatient medication list Voiding: no voiding problems Patient feeling well. Sitting in bedside chair. Pain is well controlled. Denies flatus/BM postop. Eating and drinking OK. Worked w/ PT this AM- denies significant difficulty. +chronic cough. Denies sputum production. Patient denies any fever, chills, sweats, lightheadedness, dizziness, vision changes, CP, palpitations, edema, SOB, wheezing, abdominal pain, nausea, vomiting, diarrhea, urinary symptoms, melena, numbness/tingling, weakness, anxiety/depression, active bleeding, or new skin discoloration/changes. (Margaux Dominique ., PA-C) Medications Current Inpatient Medications Medications (Trade) Dose Ordered Sig/Senait Route Start Time Stop Time Status Last Admin Dose Admin Aspirin (Ecotrin Tab) 81 mg QAM PO 01/20/17 09:00 02/19/17 08:59 01/20/17 08:41 81 MG Metoprolol Succinate (Toprol Xl Tab) 25 mg QAM PO 01/20/17 09:00 02/19/17 08:59 [id number] Acetate (Vitamin E Cap) 400 interunit QAM PO 01/20/17 09:00 02/19/17 08:59 01/20/17 08:42 400 INTERUNIT Ascorbic Acid (Vitamin C Tab) 1,000 mg QAM PO 01/20/17 09:00 02/19/17 08:59 01/20/17 08:42 1,000 MG Loratadine (Claritin Tab) 10 mg QAM PO 01/20/17 09:00 02/19/17 08:59 01/20/17 08:40 10 MG Diphenhydramine HCl (Benadryl Cap) 25 mg Q8 PRN PO 01/19/17 14:00 02/18/17 13:59 Zolpidem Tartrate (Ambien Tab) 5 mg HSZ PRN PO 01/19/17 14:00 02/18/17 13:59 Metoclopramide HCl (Reglan Inj) 10 mg Q6H PRN IV 01/19/17 14:00 02/18/17 13:59 Ondansetron HCl (Zofran Inj) 4 mg Q6H PRN IV 01/19/17 14:00 02/18/17 13:59 Pantoprazole Sodium (Protonix Tab) 40 mg QAM PO 01/20/17 09:00 02/19/17 08:59 01/20/17 08:41 40 MG Potassium Chloride/Dextrose/ Sod Cl 1,000 ml @ 100 mls/hr Q10H IV 01/19/17 16:00 01/20/17 15:59 01/20/17 02:09 100 MLS/HR Oxycodone HCl (Roxicodone Immediate Rel Tab) `1-2 TABS FOR PAIN `1 TAB... Q4H PRN PO 01/19/17 14:00 02/02/17 13:59 Oxycodone HCl (Oxycontin Tab) 10 mg Q12 PO 01/19/17 21:00 02/02/17 20:59 01/20/17 08:41 10 MG Acetaminophen (Tylenol Tab) 1,000 mg Q8 PO 01/19/17 22:00 02/18/17 21:59 01/20/17 06:07 1,000 MG Morphine Sulfate (MoRPHine SULFATE INJ) 2 mg Q2H PRN IV 01/19/17 14:00 02/02/17 13:59 Naloxone HCl (Narcan Inj) 0.1 mg Q2M PRN IV 01/19/17 14:00 02/18/17 13:59 Magnesium Hydroxide (Milk Of Magnesia Susp) 30 ml Q6H PRN PO 01/19/17 14:00 02/18/17 13:59 Bisacodyl (Dulcolax Supp) 10 mg DAILY PRN [place] 01/19/17 14:00 02/18/17 13:59 Sodium Biphosphate/ Sodium Phosphate (Fleet Enema) 132 ml DAILY PRN [place] 01/19/17 14:00 02/18/17 13:59 Docusate Sodium (coLACE CAP) 100 mg BID PO 01/19/17 21:00 02/18/17 20:59 01/20/17 08:40 100 MG Multivitamins (Multivitamin Tab) 1 tab DAILY PO 01/20/17 09:00 02/19/17 08:59 01/20/17 08:41 1 TAB Morphine Sulfate (MoRPHine SULFATE INJ) 4 mg Q2H PRN IV 01/19/17 15:30 02/02/17 15:29 Menthol (Nice Eli) 1 eli Q1H PRN PO 01/19/17 16:15 02/18/17 16:14 01/19/17 16:34 1 ELI (Margaux Dominique, HANNA) Objective Vital Signs Date Time Temp Pulse Resp B/P (MAP) Pulse Ox O2 Delivery O2 Flow Rate FiO2 01/20/17 08:19 Room Air 01/20/17 07:11 36.5 75 17 93/60 (71) 96 Room Air 01/20/17 03:22 36.7 95 16 99/56 (70) 97 Room Air 01/19/17 23:15 Room Air 01/19/17 23:03 36.6 92 16 101/66 (78) 96 Room Air 01/19/17 18:53 36.4 100 22 102/60 (74) 99 Room Air 01/19/17 18:52 99 Room Air 01/19/17 17:37 85/58 (67) 01/19/17 17:30 36.4 92 20 78/56 (63) 98 Nasal Cannula 2.0 01/19/17 16:30 88 16 91/65 (74) 99 Nasal Cannula 2.0 01/19/17 15:59 35.7 102 16 94/61 (72) 98 Nasal Cannula 2.0 01/19/17 15:50 98 Nasal Cannula 2.0 01/19/17 15:30 36.8 96 17 95/67 (76) 98 Nasal Cannula 2.0 01/19/17 15:20 88 14 92/54 98 Nasal Cannula 2 01/19/17 15:10 96 14 86/59 100 Nasal Cannula 2 01/19/17 14:55 36.6 88 16 87/57 99 Nasal Cannula 2 01/19/17 14:45 78 18 82/57 98 Nasal Cannula 2 01/19/17 14:35 93 17 83/64 100 Nasal Cannula 2 01/19/17 14:25 88 18 87/56 98 Nasal Cannula 2 01/19/17 14:17 90/62 01/19/17 14:15 98 18 79/53 99 Oxymask 10 01/19/17 14:05 84 18 85/63 100 Oxymask 10 01/19/17 13:57 36.3 101 14 84/73 100 Oxymask 10 (Margaux Dominique PA-C) Physical Exam General Appearance: no apparent distress Eyes: normal inspection, PERRL ENT: hearing grossly normal Neck: supple Respiratory/Chest: lungs clear, no respiratory distress, no accessory muscle use Cardiovascular: + irregularly irregular (rate controlled ) Abdomen: normal bowel sounds, non tender, soft Extremities: no pedal edema, no calf tenderness, + pertinent finding (R arm in sling; hemovac w/ bloody drainage; site C/D/I; no sensory loss ) Neurologic/Psychiatric: no motor/sensory deficits, alert, oriented x 3 Skin: normal color, warm/dry, no rash (Margaux Dominique PA-C) Laboratory Results Last 24 Hours Test 01/20/17 05:41 White Blood Count 36.64 K/uL Red Blood Count 3.02 M/uL Hemoglobin 10.2 g/dL Hematocrit 30.4 % Mean Corpuscular Volume 100.7 fL Mean Corpuscular Hemoglobin 33.8 pg Mean Corpuscular Hemoglobin Concent 33.6 g/dl RDW Standard Deviation 49.8 fL RDW Coefficient of Variation 13.8 % Platelet Count 107 K/uL Mean Platelet Volume 9.1 fL Sodium Level 139 mmol/L Potassium Level 4.8 mmol/L Chloride Level 109 mmol/L Carbon Dioxide Level 24 mmol/L Anion Gap 6.0 mmol/L Blood Urea Nitrogen 18 mg/dl Creatinine 1.09 mg/dl Est Creatinine Clear Calc Drug Dose 70.0 ml/min Estimated GFR () 81.0 Estimated GFR (Non- 69.9 BUN/Creatinine Ratio 16.1 Random Glucose 149 mg/dl Calcium Level 7.3 mg/dl Hepatitis C Antibody Screen NEG (Margaux Dominique PA-C) Assessment and Plan Mr. Cohen is a 67 y/o male with PMHx of Persistent Atrial Fibrillation (new diagnosis) and Leukocytosis (undetermined origin) who is S/P R Shoulder Arthroplasty and Biceps Tenodesis on 01/19. s/p R shoulder arthroplasty and biceps tenodesis on 01/19: - Pain management, IVF, PT/OT, DVT prophylaxis per primary - Postop CBC and PRP- STABLE -- Ongoing leukocytosis, likely increase in WBC due to IV steroids/postop response Persistent a. fib- rate controlled: - Opted to not utilize anticoagulation- ASA 81 mg daily - Toprol XL 25 mg daily with hold parameters Leukocytosis: - Follows with Heme/Onc back home- awaiting cytology- ?CLL diagnosis - No s/s of infection- CXR and UA unremarkable; BCx pending GI prophylaxis: Protonix daily DVT prophylaxis: ASA as per surgery Dispo: As per primary team Thank you for the consultation. Will continue to follow (Margaux Dominique ., PA-C) PA Physician Supervision Note: I interviewed and examined the patient. Discussed with Margaux Dominique PAC and agree with findings and plan as documented in the note. Any exceptions or clarifications are listed here: None Patient is status post shoulder surgery has a history of rate-controlled atrial fibrillation on metoprolol is doing quite well postoperatively has good pain control given his low Joo to score the patient himself has opted not use anticoagulation except for aspirin Vital signs are stable cardiac exam is irregularly irregular but rate controlled lungs are clear Continue on rate control medication orthopedics to direct his eventual disposition Documented By: Carlo Pollock (Carlo Pollock M.D.)
[2017-01-20 15:33] VITALS: BP 92/54; PULSE 78; TEMP 36.6; O2SAT 95
[2017-01-20] MEDS: OXYCODONE HCL IR 5 MG TAB (IMMEDIATE RELEASE) PO PRN ×2 (15:39→21:45)
[2017-01-20 23:12] VITALS: BP 87/60; PULSE 96; TEMP 36.6; O2SAT 97
[2017-01-21] MEDS: OXYCODONE HCL IR 5 MG TAB (IMMEDIATE RELEASE) PO PRN ×2 (02:25→10:09)
[2017-01-21] MEDS: ACETAMINOPHEN 500 MG TAB PO SCH ×3 (05:46→21:50)
[2017-01-21 06:31] VITALS: BP 122/79; PULSE 75; TEMP 36.5; O2SAT 96
[2017-01-21 06:33] LABS: HEMATOCRIT 32.6 % (42-52); MEAN CELL VOLUME 102.5 fL (80-100); MEAN CORPUSCULAR HEMOGLOBIN 33.6 pg (25-34); MEAN CORPUSCULAR HGB CONC 32.8 g/dl (32-36); MEAN PLATELET VOLUME 9.3 fL (7.4-10.4); PLATELET COUNT 98 K/uL (130-400); RED BLOOD COUNT 3.18 M/uL (4.7-6.1); WHITE BLOOD COUNT 39.33 K/uL (4.8-10.8)
[2017-01-21 06:36] LABS: BUN/CREATININE RATIO 20.3 (10-20); CALCIUM 8.1 mg/dl (8.5-10.1); CREATININE 1.02 mg/dl (0.60-1.40); POTASSIUM 4.3 mmol/L (3.5-5.1)
--- NOTE | 2017-01-21 08:28 | Orthopedic Progress Note ---
Orthopedic Progress Note Date of Service Jan 21, 2017. Subjective Post OP Day: 2 Reports: feeling well, Denies: chest pain, SOB, nausea / vomiting, light headedness, calf pain Objective calves soft nontender, N/V intact, capillary refill less than 2 sec., dressing C /D/I, A&O x3 Date Time Temp Pulse Resp B/P (MAP) Pulse Ox O2 Delivery O2 Flow Rate FiO2 01/21/17 07:57 Room Air 01/21/17 06:31 36.5 75 16 122/79 (93) 96 Room Air 01/21/17 00:05 Room Air 01/20/17 23:12 36.6 96 17 87/60 (69) 97 Room Air 01/20/17 15:33 36.6 78 18 92/54 (67) 95 Room Air 01/20/17 15:25 Room Air 01/20/17 11:52 36.3 78 17 96/66 (76) 98 Room Air Laboratory Results 24 Hours: Test 01/21/17 05:13 Hematocrit 32.6 % Hemoglobin 10.7 g/dL Assessment & Plan Assessment: POD #2, Right TSA, Biceps tenodesis. Plan: Limited PT/ OT as ordered DVT proph- ASA D/C planning- Home As per medicine Leukocytosis- continues to increase. CLL? - Check CXR- negative - will check UA today - Blood cultures still pending POSSIBLE DC HOME LATER TODAY IF OK WITH MEDICINE. MAY NEED TO STAY AND TREND WBC. Inhouse Planning Pain Management: Oxycontin, Morphine, PO Tylenol, Oxy IR DVT Prophylaxis: TEDs, SCDs, ASA Discharge Planning Discharge Planning: home
[2017-01-21] MEDS ORDERED: ONDA8TAB6 PO (08:30)
[2017-01-21] MEDS ORDERED: RXC5 PO (08:30)
[2017-01-21] MEDS ORDERED: ACET-24 PO (08:30)
[2017-01-21 09:01] VITALS: BP 107/73; PULSE 80; O2SAT 98
[2017-01-21] MEDS: OXYCODONE HCL 10 MG TABCR (OXYCONTIN) PO SCH ×2 (10:09→21:49)
[2017-01-21] MEDS: ASCORBIC ACID 500 MG TAB PO SCH (10:10)
[2017-01-21] MEDS: PANTOprazole SOD 40 MG TAB PO SCH (10:10)
[2017-01-21] MEDS: TOCOPHERYL, DL-ALPHA 400 INTER.UNIT CAP PO SCH (10:10)
[2017-01-21] MEDS: METOPROLOL SUCC 25MG EXT REL TAB PO SCH (10:10)
[2017-01-21] MEDS: MULTIVITAMIN TAB PO SCH (10:10)
[2017-01-21] MEDS: LORATADINE 10 MG TAB PO SCH (10:10)
[2017-01-21] MEDS: ASPIRIN 81 MG ECTAB PO SCH (10:10)
[2017-01-21] MEDS: DOCUSATE SODIUM 100 MG CAP PO SCH ×2 (11:51→21:49)
[2017-01-21] MEDS: MAGNESIUM HYDROXIDE SUSP 30 ML UDC PO PRN (13:34)
--- NOTE | 2017-01-21 14:30 | Progress Note ---
Subjective Date of Service: Jan 21, 2017. Subjective pt feels slightly fatigued, shoulder is slightly painful Review of Systems Constitutional: + weakness, + fatigue, No fever, No chills Respiratory: No cough, No sputum Cardiac: No chest pain, No edema Abdomen: No pain, No nausea, No vomiting Musculoskeletal: + joint pain, + muscle pain Objective Vital Signs Date Time Temp Pulse Resp B/P (MAP) Pulse Ox O2 Delivery O2 Flow Rate FiO2 01/21/17 09:01 80 98 01/21/17 07:57 Room Air 01/21/17 06:31 36.5 75 16 122/79 (93) 96 Room Air 01/21/17 00:05 Room Air 01/20/17 23:12 36.6 96 17 87/60 (69) 97 Room Air 01/20/17 15:33 36.6 78 18 92/54 (67) 95 Room Air 01/20/17 15:25 Room Air Physical Exam General Appearance: WD/WN, + mild distress Neck: supple, no JVD Respiratory/Chest: chest non-tender, lungs clear, normal breath sounds Cardiovascular: no murmur, + irregularly irregular Abdomen: normal bowel sounds, non tender, soft Extremities: no pedal edema, no calf tenderness Neurologic/Psychiatric: alert, oriented x 3 Laboratory Results Last 24 Hours Test 01/21/17 05:13 White Blood Count 39.33 K/uL Red Blood Count 3.18 M/uL Hemoglobin 10.7 g/dL Hematocrit 32.6 % Mean Corpuscular Volume 102.5 fL Mean Corpuscular Hemoglobin 33.6 pg Mean Corpuscular Hemoglobin Concent 32.8 g/dl RDW Standard Deviation 52.5 fL RDW Coefficient of Variation 14.2 % Platelet Count 98 K/uL Mean Platelet Volume 9.3 fL Sodium Level 141 mmol/L Potassium Level 4.3 mmol/L Chloride Level 108 mmol/L Carbon Dioxide Level 29 mmol/L Anion Gap 4.0 mmol/L Blood Urea Nitrogen 21 mg/dl Creatinine 1.02 mg/dl Est Creatinine Clear Calc Drug Dose 74.8 ml/min Estimated GFR () 87.7 Estimated GFR (Non- 75.7 BUN/Creatinine Ratio 20.3 Random Glucose 87 mg/dl Calcium Level 8.1 mg/dl Assessment and Plan Mr. Cohen is a 67 y/o male with PMHx of Persistent Atrial Fibrillation (new diagnosis) and Leukocytosis (undetermined origin) who is S/P R Shoulder Arthroplasty and Biceps Tenodesis on 01/19. s/p R shoulder arthroplasty and biceps tenodesis on 01/19: - Pain management, IVF, PT/OT, DVT per ortho Persistent a. fib- rate controlled: pt Opted to not utilize anticoagulation- ASA 81 mg daily, continue Toprol XL 25 mg daily Leukocytosis:- Follows with Heme/Onc back home- awaiting cytology- ?CLL diagnosis - No s/s of infection-will usually have elevated wbc GI prophylaxis: asymptomatic Protonix daily DVT prophylaxis: ASA as per surgery
[2017-01-21 15:18] VITALS: BP 126/84; PULSE 87; TEMP 35.7; O2SAT 94
[2017-01-21 15:42] LABS: URINE APPEARANCE CLEAR (CLEAR); URINE BILIRUBIN NEG (NEG); URINE COLOR YELLOW; URINE EPITHELIAL CELL AUTO 0-5 /lpf (0-5); URINE NITRITE NEG (NEG); URINE SPECIFIC GRAVITY 1.022 (1.000-1.030); UROBILINOGEN NEG (NEG); ZZUR CULT IF INDIC CLEAN CATCH NO
[2017-01-21 15:44] LABS: MANUAL MICROSCOPIC REQUIRED? NO; REVIEW REQ? NO
[2017-01-21 23:03] VITALS: BP 106/81; PULSE 89; TEMP 36.8; O2SAT 100
[2017-01-22] MEDS: ACETAMINOPHEN 500 MG TAB PO SCH (06:01)
[2017-01-22 06:19] LABS: HEMATOCRIT 31.4 % (42-52); MEAN CELL VOLUME 101.3 fL (80-100); MEAN CORPUSCULAR HEMOGLOBIN 33.5 pg (25-34); MEAN CORPUSCULAR HGB CONC 33.1 g/dl (32-36); MEAN PLATELET VOLUME 9.4 fL (7.4-10.4); PLATELET COUNT 101 K/uL (130-400); WHITE BLOOD COUNT 37.72 K/uL (4.8-10.8)
[2017-01-22 06:28] LABS: BASO % 0.1 %; BASO ABS # 0.03 K/uL (0-0.2); COMPLETE YES; EOS % 0.3 %; IG% 0.1 %; LYMPH % 93.2 %; LYMPH ABS # 35.15 K/uL (1.2-3.4); MONO % 0.8 %; NEUT % 5.5 %
[2017-01-22 07:28] VITALS: BP 102/77; PULSE 89; TEMP 36.8; O2SAT 97
--- NOTE | 2017-01-22 08:13 | Orthopedic Progress Note ---
Orthopedic Progress Note Date of Service Jan 22, 2017. Subjective Post OP Day: 3 Reports: feeling well, Denies: chest pain, SOB, nausea / vomiting, light headedness, calf pain Objective calves soft nontender, N/V intact, incision C/D/I, A&O x3, CMS intact Date Time Temp Pulse Resp B/P (MAP) Pulse Ox O2 Delivery O2 Flow Rate FiO2 01/22/17 07:28 36.8 89 16 102/77 (85) 97 Room Air 01/22/17 00:20 Room Air 01/21/17 23:03 36.8 89 16 106/81 (89) 100 Room Air 01/21/17 15:30 Room Air 01/21/17 15:18 35.7 87 18 126/84 (98) 94 Room Air 01/21/17 09:01 80 98 Laboratory Results 24 Hours: Test 01/22/17 05:18 White Blood Count 37.72 K/uL Red Blood Count 3.10 M/uL Hemoglobin 10.4 g/dL Hematocrit 31.4 % Mean Corpuscular Volume 101.3 fL Mean Corpuscular Hemoglobin 33.5 pg Mean Corpuscular Hemoglobin Concent 33.1 g/dl Platelet Count 101 K/uL Mean Platelet Volume 9.4 fL Neutrophils (%) (Auto) 5.5 % Lymphocytes (%) (Auto) 93.2 % Monocytes (%) (Auto) 0.8 % Eosinophils (%) (Auto) 0.3 % Basophils (%) (Auto) 0.1 % Neutrophils # (Auto) 2.10 K/uL Lymphocytes # (Auto) 35.15 K/uL Monocytes # (Auto) 0.29 K/uL Eosinophils # (Auto) 0.11 K/uL Basophils # (Auto) 0.03 K/uL Assessment & Plan Assessment: POD #3, Right TSA, Biceps tenodesis. LEUKOCYTOSIS Plan: Limited PT/ OT as ordered DVT proph- ASA D/C planning- Home As per medicine Leukocytosis- continues to increase. CLL? - Check CXR- negative - UA- NEGATIVE - Blood cultureS-NGTD - NO OBVIOUS SIGN OF INFECTION. GOING TO SEE HEME/ONC OUTPATIENT DC HOME TODAY Inhouse Planning Pain Management: Oxycontin, Morphine, PO Tylenol, Oxy IR DVT Prophylaxis: TEDs, SCDs, ASA Discharge Planning Discharge Planning: home
[2017-01-22] MEDS: PANTOprazole SOD 40 MG TAB PO SCH (08:50)
[2017-01-22] MEDS: ASCORBIC ACID 500 MG TAB PO SCH (08:50)
[2017-01-22] MEDS: MULTIVITAMIN TAB PO SCH (08:50)
[2017-01-22] MEDS: DOCUSATE SODIUM 100 MG CAP PO SCH (08:50)
[2017-01-22] MEDS: LORATADINE 10 MG TAB PO SCH (08:50)
[2017-01-22] MEDS: OXYCODONE HCL 10 MG TABCR (OXYCONTIN) PO SCH (08:50)
[2017-01-22] MEDS: ASPIRIN 81 MG ECTAB PO SCH (08:51)
[2017-01-22] MEDS: TOCOPHERYL, DL-ALPHA 400 INTER.UNIT CAP PO SCH (08:51)
[2017-01-22] MEDS: METOPROLOL SUCC 25MG EXT REL TAB PO SCH (08:51)
[2017-01-22] MEDS: MAGNESIUM HYDROXIDE SUSP 30 ML UDC PO PRN (08:56)
[2017-01-22 09:02] VITALS: BP 102/77; PULSE 89; TEMP 36.8; O2SAT 97
[2017-01-22] MEDS: OXYCODONE HCL IR 5 MG TAB (IMMEDIATE RELEASE) PO PRN (10:32)
--- NOTE | 2017-02-03 16:03 | DISCHARGE SUMMARY ---
HISTORY OF PRESENT ILLNESS: This is a 67-year-old male patient of Dr. Varela's complaining of chronic right shoulder pain, longstanding, now progressively getting worse. The patient was diagnosed with end-stage osteoarthritis per clinical and radiographic exams. The patient elected to proceed with a right total shoulder arthroplasty. PAST MEDICAL HISTORY: Significant for atrial fibrillation, osteoarthritis, possible chronic lymphocytic leukemia. POSTOPERATIVE COURSE: The patient underwent a right total shoulder arthroplasty and biceps tenodesis on 01/19/2017. He was followed closely with medical consultation, physical therapy, DVT prophylaxis in the form of aspirin and pain control. The patient did well postoperatively. He did have consistently elevated white cell counts above the infection level. Chest x-ray was ordered and negative. Urinalysis was negative. Blood cultures had no growth. The patient is going to see heme-onc specialist as an outpatient for his unusually high elevated white cell count. Otherwise, no problems postoperatively. PHYSICAL EXAMINATION: On discharge, patient's right shoulder incision was clean, dry and intact. [place] are intact. Skin edges were approximated well. There was no redness or drainage. Neurologically and neurovascularly, he is intact in his right upper extremity. DIAGNOSES: Status post right total shoulder arthroplasty and biceps tenodesis with a history of atrial fibrillation, osteoarthritis, and possible chronic lymphocytic leukemia. PLAN: The patient was discharged home. He will do outpatient physical therapy. He will continue his preadmission medications with the addition of aspirin and pain control. He will follow up with heme-onc specialist due to his unusually high white cell counts which is that being higher than infection. No signs of infection were seen in his hospital stay. He will follow up with Dr. Varela as an outpatient as scheduled as well as hematology/oncology.
== END 2017-01-22 10:52 | disposition home or self-care (01) | DRG 483 ==
LOC: C.ACU 07:09 → C.3E 09:00 → ENRESERV 15:06
PROVIDERS: ADMIT Orthopaedic Surgery Sports Medicine; ATTEND Orthopaedic Surgery Sports Medicine
PROC: 0RRJ0JZ Replacement of Right Shoulder Joint with Synthetic Substitute, Open Approach (ICD-10-PCS; principal; 2017-01-19 10:00)
DX: M19.011 Primary osteoarthritis, right shoulder (principal); M96.621 Fracture of humerus following insertion of orthopedic implant, joint prosthesis, or bone plate, right arm; I48.1 Persistent atrial fibrillation; C91.10 Chronic lymphocytic leukemia of B-cell type not having achieved remission; M75.21 Bicipital tendinitis, right shoulder; Y83.8 Other surgical procedures as the cause of abnormal reaction of the patient, or of later complication, without mention of misadventure at the time of the procedure; Z88.2 Allergy status to sulfonamides; Y92.234 Operating room of hospital as the place of occurrence of the external cause